=== PATIENT | female | born 1995 | race African-American/Black ===

== ENCOUNTER 2020-10-17 17:08 | Emergency (ER) | payer OTHER ==
[2020-10-17 17:47] VITALS: BMI 26.4
[2020-10-17 18:30] VITALS: BP 99/65; PULSE 86; TEMP 98.4
== END 2020-10-17 18:05 | disposition home or self-care (01) ==
LOC: JER 17:08
DX: G40.89 Other seizures (principal)
CPT/HCPCS: 36415; 80177; 99283-25